=== PATIENT | female | born 1960 | race Caucasian/White ===

== ENCOUNTER 2021-01-07 01:09 | Outpatient (REF) | payer OTHER, SELFPAY | END 2021-01-07 01:10 | disposition home or self-care (01) | LOC: LBN 01:09 | PROVIDERS: Visit Provider Family Medicine | DX: S71.101A Unspecified open wound, right thigh, initial encounter (principal); L08.89 Other specified local infections of the skin and subcutaneous tissue | CPT/HCPCS: 87077; 87070; 87186; 87205 ==

== ENCOUNTER 2021-01-12 17:02 | Emergency (ER) | payer OTHER, SELFPAY ==
[2021-01-12 17:28] VITALS: BP 149/51; PULSE 71; RESP 16; TEMP 36.4; O2SAT 97
[2021-01-12 17:33] VITALS: BP 101/65; PULSE 62; RESP 15; TEMP 36.9; O2SAT 95
[2021-01-12] MEDS: oxyCODONE 5 MG TAB PO (19:27)
[2021-01-12] MEDS: Ondansetron O.D.T. 4 MG TABEF PO (19:27)
[2021-01-12 20:15] LABS: Abs Immature Grans 0.07 10^3/uL (0.0-0.06); Absolute Basophil Count 0.04 10^3/uL (0.0-0.2); Absolute Eosinophil Count 0.01 10^3/uL (0.0-0.7); Absolute Lymphocyte Count 1.66 10^3/uL (1.2-3.4); Absolute Monocyte Count 1.01 10^3/uL (0.1-0.8); Absolute Neutrophil Count 9.99 10^3/uL (1.2-6.7); Basophils % 0.3; Eosinophils % 0.1; HCT 28.8 % (36.0-46.0); HGB 8.6 g/dL (11.2-15.7); Immature Grans % 0.5; MCH 27.4 pg (27.0-33.0); MCHC 29.9 % (32.0-36.0); MCV 91.7 fL (80-95); Monocytes % 7.9; Neutrophils % 78.2; Nucleated RBC 0 %; Platelet Count 338 10^3/uL (130-400); RBC 3.14 10^6/uL (3.93-5.22); RDW 14.7 % (11.7-14.6); RDW-SD 49.4 fL; WBC 12.78 10^3/uL (4.4-10.8)
[2021-01-12 20:26] LABS: ALT 6 U/L (14-59); AST 14 U/L (15-37); Albumin 1.6 g/dL (3.4-5.0); Alkaline Phosphatase 188 U/L (46-116); Anion Gap 5.7 mmol/L (3-11); BUN 15 mg/dL (7-18); Bilirubin, Total 0.9 mg/dL (0.2-1.0); CO2 33.3 mmol/L (21.0-32.0); CREATININE 1.9 mg/dL (0.55-1.02); Calcium 8.1 mg/dL (8.5-10.1); Chloride 98 mmol/L (98-107); Estimated GFR 26.79 (mL/min/1.73m2); Glucose 189 mg/dL (74-106); Sodium 137 mmol/L (136-145); Total Protein 6.9 g/dL (6.4-8.2)
[2021-01-12 20:32] LABS: Potassium 2.9 mmol/L (3.5-5.1)
--- NOTE | 2021-01-12 21:05 | ED.GENADUL_ITS ---
Discharge Plan Disposition Patient Disposition: [facility] Condition: Serious Discharge Details Clinical Impression: Decubitus ulcer, infected, Acute hypokalemia Primary Care Provider: None,None ED Provider: Samy Lewis Discharge Data Discharge Date/Time-TO BE ENTERED AT DEPARTURE: 01/12/21 22:14 Medical Decision Making 60-year-old female with multiple medical problems including history of diabetes, morbid obesity, end-stage renal disease on hemodialysis, here with wounds bilateral posterior thighs that appear to be stage IV decubitus ulcers that has recent wound culture from 01/07/2021 growing Raoultella Planticola sensitive only to imipenem and Pseudomonas aeruginosa sensitive to ceftazidime, gentamicin, and imipenem, tobramycin and Zosyn. Patient is not septic appearing. Labs reviewed and patient has leukocytosis noted. She is anemic with hemoglobin of 8.6. Potassium is noted to be low at 2.9. Care was delayed secondary to difficulty with IV access. Multiple attempts by nursing. Ultrasound-guided IV was placed by me on first attempt. I will give potassium 20 mEq IV. I will start treatment with imipenem.. I called and [place] Eddy Wood[place] [facility] [place] course including diagnostics. He will keep the patient in transfer. HPI General Mode of arrival: EMS . Date/Time Provider Initiated Documentation: 01/12/21 18:15 . Limitations to Documentation: no limitations . Information obtained by: patient and EMS . HPI Narrative: 50-year-old female with history of end-stage renal disease on hemodialysis, ulcers of bilateral thighs sent by dialysis center after completing dialysis with concern for wound culture that is growing resistant bacteria. Patient has poor knowledge of current illness. She notes that her wounds are getting worse. And that her right side is worse than the left. She denies associated fever. History limited as patient has poor knowledge of illness. General Stated Complaint: GenMedical TANK: 3 Review of Systems All systems reviewed & are unremarkable except as noted in HPI and below Constitutional Constitutional: Denies fever(s) and Reports weakness Integumentary/Breasts Skin/Breast: Reports as per HPI Neurologic Neurologic: Reports weakness [facility] Social History Smoking/Tobacco Use Status: Never Smoking risk assessment performed?: Yes Drug use: Never Substance use type: does not use Do you feel safe at home: Yes Exam Const General: cooperative and no acute distress Nutritional Appearance: obese Orientation: alert and awake HENMT Mouth: moist mucous membranes Eyes Conjunctivae: normal conjunctivae Sclera: normal sclerae Neck Neck: trachea midline Resp Auscultation: clear to auscultation bilaterally, no rales, no rhonchi and no wheezes Cardio Rate: regular rate and not tachycardic Rhythm: regular rhythm GI Palpation: soft, not firm, no guarding, no masses, not rigid and nontender Skin General skin exam: no rashes or lesions noted, erythema (surrounding ulcers) and no fluctuance Wounds: wounds noted (large b/l necrotic center with scant foul smelling draining ) Other: no rash inner thighs Neuro General: patient alert, patient awake, patient oriented x3 and tone normal Extrem General: no edema Psych Appearance: grossly normal Mental Status: mental status grossly normal Course Vital Signs Vital signs: Vital Signs Temperature 36.9 C 01/12/21 17:33 Pulse 62 01/12/21 17:33 Respiratory Rate 15 01/12/21 17:33 Blood Pressure 101/65 01/12/21 17:33 Pulse Oximetry 95 01/12/21 17:33 Temperature 36.9 C 01/12/21 17:33 Pulse 62 01/12/21 17:33 Respiratory Rate 15 01/12/21 17:33 Respiratory Effort Non-Labored 01/12/21 17:34 Blood Pressure 101/65 01/12/21 17:33 Pulse Oximetry 95 01/12/21 17:33 Oxygen Delivery Method Room Air 01/12/21 17:33 Oxygen Flow Rate 0 01/12/21 17:33 Pain Level 0 01/12/21 17:33 Lab/Test Results Lab/Test Results: 01/12/21 20:03 Blood Blood Culture - Pending 01/12/21 18:15 Blood Blood Culture - Pending Laboratory Tests Range/Units 01/12/21 01/12/21 20:03 20:03 WBC (4.4-10.8) 10^3/uL 12.78 H RBC (3.93-5.22) 10^6/uL 3.14 L Hgb (11.2-15.7) g/dL 8.6 L Hct (36.0-46.0) % 28.8 L MCV (80-95) fL 91.7 MCH (27.0-33.0) pg 27.4 MCHC (32.0-36.0) % 29.9 L RDW (11.7-14.6) % 14.7 H Plt Count (130-400) 10^3/uL 338 MPV (8.0-11.0) fL 9.0 Immature Gran % 0.5 Neutrophils % 78.2 Lymphocytes % 13.0 Monocytes % 7.9 Eosinophils % 0.1 Basophils % 0.3 Nucleated RBC % % 0 Absolute Neutrophils (1.2-6.7) 10^3/uL 9.99 H Absolute Lymphocytes (1.2-3.4) 10^3/uL 1.66 Absolute Monocytes (0.1-0.8) 10^3/uL 1.01 H Absolute Eosinophils (0.0-0.7) 10^3/uL 0.01 Absolute Basophils (0.0-0.2) 10^3/uL 0.04 Sodium (136-145) mmol/L 137 Potassium (3.5-5.1) mmol/L 2.9 L Chloride (98-107) mmol/L 98 Carbon Dioxide (21.0-32.0) mmol/L 33.3 H Anion Gap (3-11) mmol/L 5.7 BUN (7-18) mg/dL 15 Creatinine (0.55-1.02) mg/dL 1.9 H Estimated GFR/1.73 m2 (mL/min/1.73m2) 26.79 Glucose (74-106) mg/dL 189 H Calcium (8.5-10.1) mg/dL 8.1 L Total Bilirubin (0.2-1.0) mg/dL 0.9 AST (15-37) U/L 14 L ALT (14-59) U/L 6 L Alkaline Phosphatase (46-116) U/L 188 H Total Protein (6.4-8.2) g/dL 6.9 Albumin (3.4-5.0) g/dL 1.6 L
[2021-01-12] MEDS: Potassium Chloride 20 MEQ TABCR 40 MEQ PO (21:51)
[2021-01-12 22:12] VITALS: RESP 16
[2021-01-12] MEDS: IMIPENEM/CILASTATIN 1,000 MG in Normal Saline 250 ML 250 MG IVPB (22:13)
[2021-01-12] MEDS: Potassium Chloride 20 MEQ TABCR (22:13)
[2021-01-12 22:15] VITALS: BP 149/51; PULSE 62; RESP 16; TEMP 36.9; O2SAT 95
== END 2021-01-12 22:14 | disposition short-term general hospital (02) ==
PROVIDERS: Emergency Provider Student in an Organized Health Care Education/Training Program
DX: L89.894 Pressure ulcer of other site, stage 4 (principal); L08.89 Other specified local infections of the skin and subcutaneous tissue; B96.5 Pseudomonas (aeruginosa) (mallei) (pseudomallei) as the cause of diseases classified elsewhere; B96.89 Other specified bacterial agents as the cause of diseases classified elsewhere; Z16.11 Resistance to penicillins; Z16.19 Resistance to other specified beta lactam antibiotics; Z16.23 Resistance to quinolones and fluoroquinolones; Z16.29 Resistance to other single specified antibiotic; D64.9 Anemia, unspecified
CPT/HCPCS: 80053; 87040; 96374; 99285; 85025; 99284; J0743